=== PATIENT | male | born 1965 ===

== ENCOUNTER 2018-06-24 13:17 | Outpatient (CLI) | payer MEDICAID ==
[~2018-06-24] VITALS: Ht 182.9 cm; Wt 65.8 kg
[2018-06-24] MEDS ORDERED: HIV med (16:16)
[2018-06-24] MEDS ORDERED: thorazine (16:16)
[2018-06-24] MEDS ORDERED: BACLOFEN10 MG ORAL (16:16)
[2018-06-24 16:18] VITALS: BP 98/53
--- NOTE | 2018-06-24 21:15 | Consultation ---
DATE OF CONSULTATION: 06/24/2018 CHIEF COMPLAINT: GERD and chronic hiccups. HISTORY OF PRESENT ILLNESS: The patient is a 52-year-old male with history of HIV, anxiety, history of bile reflux, had endoscopy about 2 years ago. He has been saying that his symptoms are not getting better. He actually getting worse. He has been losing weight. He lost about 20 pounds in the last year or so. He said every time he eats, he vomits and he had some bile and gas coming out and it has been going on for almost since 2015 now. The patient never had a colonoscopy before. PAST MEDICAL HISTORY: 1. HIV. 2. Anxiety. 3. Alcoholism. 4. GERD. PAST SURGICAL HISTORY: Left inguinal hernia repair. MEDICATIONS: Currently on HIV medication, PPI, baclofen, Thorazine FAMILY HISTORY: Father had prostate cancer and lymphoma. SOCIAL HISTORY: The patient drinks vodka. He states every other day, he drinks three cups. He denies tobacco usage. He has history of drug use but not current. ALLERGIES: Penicillin. REVIEW OF SYSTEMS: A 10-point review of systems was performed, pertinent positives in HPI. PHYSICAL EXAMINATION: VITAL SIGNS: Temperature is 96.6, blood pressure 98/53, pulse 83, respirations 20. HEENT: Normocephalic and atraumatic. Sclerae are anicteric. NECK: Supple. No obvious evidence of lymphadenopathy. CARDIOVASCULAR: Regular rate and rhythm plus S1 and S2. No obvious murmur. LUNGS: Clear to auscultation bilaterally. ABDOMEN: Positive bowel sounds. Soft and nontender. No rebound. No guarding. No peritoneal sign. EXTREMITIES: No cyanosis. No clubbing. No edema. ASSESSMENT: The patient is a 52-year-old male with chronic hiccups, excessive alcohol use, weight loss, need for screening colonoscopy. PLAN: Discussed with the patient in detail we want a second opinion regarding his chronic GERD symptoms. He wants another endoscopy. I told he is over age of 50 so he needs to have a colonoscopy so we will plan to do endoscopy and colonoscopy for him after insurance authorizes it. Today he was given a and instruction for colonoscopy. The patient was also advised to stop drinking as that may contribute to his symptoms. Tra Duncan Gómez DR: Jose F JOB#: [id number] CC:
== END 2018-06-24 15:17 | disposition home or self-care (01) ==
LOC: PAN 13:17
DX: R63.4 Abnormal weight loss (principal); R11.10 Vomiting, unspecified; R06.6 Hiccough; F10.10 Alcohol abuse, uncomplicated; B20 Human immunodeficiency virus [HIV] disease; K21.9 Gastro-esophageal reflux disease without esophagitis; F41.9 Anxiety disorder, unspecified; Z88.0 Allergy status to penicillin
CPT/HCPCS: 99202

== ENCOUNTER 2018-12-17 12:53 | Outpatient (CLI) | payer MEDICAID ==
[~2018-12-17 12:53] MED LIST: BACLOFEN10 MG ORAL; HIV med; thorazine
[2018-12-17 13:15] VITALS: BP 105/69
--- NOTE | 2018-12-17 13:50 | General Progress Note ---
Assessment/Plan Problem List: (1) GERD (gastroesophageal reflux disease) ICD Codes: K21.9 - Gastro-esophageal reflux disease without esophagitis SNOMED: 870193934 (2) Esophagitis ICD Codes: K20.9 - Esophagitis, unspecified SNOMED: 54633817 (3) HIV (human immunodeficiency virus infection) ICD Codes: B20 - Human immunodeficiency virus [HIV] disease SNOMED: 66481046 Assessment/Plan: refill Baclofen EGD reviewed with the patient refill Baclofen refer back to pmd for surg referal Subjective ROS Limited/Unobtainable: Yes Allergies: Coded Allergies: PENICILLINS (Verified Allergy, Intermediate, 06/24/18) Objective General Appearance: alert EENT: normal ENT inspection Neck: supple Cardiovascular: normal rate Respiratory/Chest: decreased breath sounds Abdomen: normal bowel sounds, non tender, soft Extremities: non-tender Tra Gómez MD Dec 17, 2018 13:50
[2018-12-17] MEDS ORDERED: DESCOVY PO (17:10)
[2018-12-17] MEDS ORDERED: SYMTUZA 800-151 EACH PO (17:10)
[2018-12-17] MEDS ORDERED: OMEPRAZOLE40 M1 ORAL (17:10)
[2018-12-17] MEDS ORDERED: ACETAMINOPHEN325 M1 ORAL (17:10)
[2018-12-17] MEDS ORDERED: VITAMIN B-1100 MG ORAL (17:10)
[2018-12-17] MEDS ORDERED: PREZCOBIX 8001 EACH PO (17:10)
[2018-12-17] MEDS ORDERED: PROAIR HFA8.5 GM INH (17:10)
[2018-12-17] MEDS ORDERED: MEPRON750 MG/51 ORAL (17:10)
[2018-12-17] MEDS ORDERED: [UNRECOGNIZED DRUG - CODE] IM (17:10)
[2018-12-17] MEDS ORDERED: TRAZODONE HCL50 MG ORAL (17:10)
[2018-12-17] MEDS ORDERED: FOLIC ACID1 MG ORAL (17:10)
[2018-12-17] MEDS ORDERED: CHLORPROMAZINE50 MG PO (17:10)
[2018-12-17] MEDS ORDERED: TIVICAY50 MG ORAL (17:10)
[2018-12-17] MEDS ORDERED: DAPSONE100 MG ORAL (17:10)
[2018-12-17] MEDS ORDERED: NALTREXONE HCL50 MG PO (17:10)
[2018-12-17] MEDS ORDERED: VRAYLAR PO (17:10)
== END 2018-12-17 14:51 | disposition home or self-care (01) ==
LOC: PAN 12:53
DX: K21.9 Gastro-esophageal reflux disease without esophagitis (principal); K20.9 Esophagitis, unspecified; B20 Human immunodeficiency virus [HIV] disease; Z88.0 Allergy status to penicillin
CPT/HCPCS: 99212

== ENCOUNTER 2019-03-01 13:31 | Outpatient (CLI) | payer MEDICAID ==
[~2019-03-01 13:31] MED LIST changes: +ACETAMINOPHEN325 M1 ORAL; +CHLORPROMAZINE50 MG PO; +DAPSONE100 MG ORAL; +DESCOVY PO; +FOLIC ACID1 MG ORAL; +MEPRON750 MG/51 ORAL; +NALTREXONE HCL50 MG PO; +OMEPRAZOLE40 M1 ORAL; +PREZCOBIX 8001 EACH PO; +PROAIR HFA8.5 GM INH; +SYMTUZA 800-151 EACH PO; +TIVICAY50 MG ORAL; +TRAZODONE HCL50 MG ORAL; +VITAMIN B-1100 MG ORAL; +VRAYLAR PO; +[UNRECOGNIZED DRUG - CODE] IM
[2019-03-01 13:50] VITALS: BP 90/72
--- NOTE | 2019-03-01 14:19 | General Progress Note ---
Assessment/Plan Assessment/Plan: Assessment/Plan Problem List: (1) GERD (gastroesophageal reflux disease) ICD Codes: K21.9 - Gastro-esophageal reflux disease without esophagitis SNOMED: 092103213 (2) Esophagitis ICD Codes: K20.9 - Esophagitis, unspecified SNOMED: 20778469 (3) HIV (human immunodeficiency virus infection) ICD Codes: B20 - Human immunodeficiency virus [HIV] disease SNOMED: 16636056 Assessment/Plan: refill Baclofen EGD reviewed with the patient refill Baclofen refer back to pmd for surg referal Subjective ROS Limited/Unobtainable: Yes Allergies: Coded Allergies: PENICILLINS (Verified Allergy, Intermediate, 06/24/18) CODEINE (Verified Allergy, Unknown, 12/17/18) Objective General Appearance: alert EENT: normal ENT inspection Neck: supple Cardiovascular: normal rate Respiratory/Chest: lungs clear Abdomen: normal bowel sounds, non tender, soft Tra Gómez MD Mar 01, 2019 14:19
[2019-03-02] MEDS ORDERED: BACLOFEN10 MG ORAL (08:26)
== END 2019-03-01 15:31 | disposition home or self-care (01) ==
LOC: PAN 13:31
DX: K21.0 Gastro-esophageal reflux disease with esophagitis (principal); B20 Human immunodeficiency virus [HIV] disease; Z88.6 Allergy status to analgesic agent; Z88.0 Allergy status to penicillin